=== PATIENT | female | born 1930 | race Caucasian/White ===

== ENCOUNTER 2016-10-31 13:23 | Day surgery (SDC) | payer MEDICARE, OTHER ==
[~2016-10-31] VITALS: Ht 149.9 cm; Wt 59.4 kg
[~2016-10-31 13:23] MED LIST: AMLO5TAB PO; BACLOFEN 10MG T10 MG PO; LEVOTHYROXINE0.05 MG NG; LIPITOR40 MG PO; LISINOPRIL 20MG20 MG PO; METOPROLOL SUCC50 M1 PO; NORCO 325 MG-101 TAB PO; PANTOPRAZOLE SO40 MG PO; POTASSIUM CHLO10 ME3 PO; SOTALOL 80MG TA80 MG PO; XARELTO20 MG PO; ZOLPIDEM 10MG T10 MG PO
[2016-10-31 13:49] VITALS: BP 147/87
[2016-10-31 14:11] VITALS: BP 147/87
[2016-10-31 14:14] VITALS: BP 147/87
--- NOTE | 2016-10-31 14:24 | Procedure Note ---
Procedure detail Date of procedure: 10/31/16 Anesthesiologist: Jm hunt CRNA Complications: None Pre-procedure diagnosis: Degenerative osteoporosis LEFT knee. Post-procedure diagnosis: Same. Indications for procedure: This patient is a pleasant 86-year-old white female who we are treating for low back pain with lumbar radicular symptoms. She is currently on hydrocodone 10 mg 4 times a day as well as Zanaflex 4 mg twice a day. She has excessive sedation with her Zanaflex. We will change her over to baclofen 10 mg 3 times a day to see if this will give her relief without sedating her. She has a [employer] spinal cord stimulator in place which is currently not working as it does not give her adequate coverage of her pain symptoms. She is on chronic anticoagulation so she is not a candidate for any injections at this time. She does have some LEFT knee pain status post LEFT total knee replacement back in 2002. She has received injections in her LEFT knee which is helped her tremendously in the past. We will refill her oxycodone 10 mg 4 times a day, start baclofen 10 mg 3 times a day and schedule her for a LEFT knee intra- articular injection to see if this will give her some relief of her pain symptoms. Patient presents today for LEFT intra-articular knee injection. Procedure detail: Details of procedure is planned the patient. The patient taken to the procedure room where noninvasive monitors were placed including noninvasive blood pressure cuff as well as pulse oximeter. Patient was placed in the sitting position. The area over the LEFT knee was cleansed using chlorhexidine as a cleansing solution. Using the posterior lateral approach of the LEFT patella. The knee was accessed with a 22-gauge inch and a half needle. Solution containing 3 mL of 0.25 percent Marcaine +3 mL 1 percent lidocaine and 40 mg of Depo-Medrol were injected. Patient are the procedure without difficulty. There were no complications. Plan and disposition: Patient was reevaluated 10 minutes post procedure. She reported her pain had decresaed more than 50%. We will follow up with her in the clinic. at [id number]
[2016-10-31 14:29] VITALS: BP 129/65
[2016-11-21] MEDS ORDERED: NORCO 325 MG-101 TAB PO (11:07)
== END 2016-10-31 14:30 | disposition home or self-care (01) ==
LOC: PM 13:23
PROC: 3E0U3BZ Introduction of Anesthetic Agent into Joints, Percutaneous Approach (ICD-10-PCS; principal; 2016-10-31)
PROC: 3E0U33Z Introduction of Anti-inflammatory into Joints, Percutaneous Approach (ICD-10-PCS; 2016-10-31)
DX: M17.12 Unilateral primary osteoarthritis, left knee (principal); M81.0 Age-related osteoporosis without current pathological fracture
CPT/HCPCS: J1030